=== PATIENT | female | born 1980 | race African-American/Black ===

== ENCOUNTER → 2021-09-09 04:05 | Outpatient (CLI) | payer OTHER, SELFPAY ==
[2021-09-09 16:54] LABS: SARS-CoV-2 RNA PCR Negative
== END ==
PROVIDERS: Visit Provider Obstetrics & Gynecology
DX: Z01.812 Encounter for preprocedural laboratory examination (principal); Z20.822 Contact with and (suspected) exposure to COVID-19
CPT/HCPCS: C9803; U0003; U0005

== ENCOUNTER 2021-09-10 03:11 | Day surgery (SDC) | payer OTHER, SELFPAY ==
[2021-09-08 10:42] VITALS: BMI 29.8
--- NOTE | 2021-09-08 10:51 | PC.NURSE ---
Report to the Outpatient Waiting Room, entrance under the green pavilion located off [facility], at time 1130 on date 09/10/21. OR Time: 1330. - You and your visitor will be asked a series of questions to screen for COVID 19 for your protection. - A mask is required within the hospital. - Only one visitor is allowed at this time. Patient visitors will be guided where to wait when not with patient. Preoperative COVID Testing Requirements: No COVID Test needed if: (proof is required; if not received patient will have Rapid Test prior to entry) - Patient has received COVID Vaccine at least 14 days prior to procedure date or - Patient has positive COVID test result within last 90 days of surgery date. COVID Test needed if above criteria is not met If not COVID vaccinated a COVID test must be conducted within 72 hours of surgery and patient is asked to isolate self from time of testing until procedure. You will go to the [facility] for your COVID testing. The [facility] is located at the corner of [address] [facility]. COVID TEST 09/09 AT 0830 You will only be called if COVID results are positive and your surgeon may reschedule your elective surgery date. Patients may have clear liquids (water, carbonated beverages, clear teas, apple juice) until 3 hours prior to surgery with a maximum of 20 ounces. - No food from midnight until time of surgery - Infants may have breast milk until 4 hours before surgery, infant formula 6 hours prior to surgery. - Children will be allowed to drink immediately following surgery. If applicable, please bring a bottle or sippy cup to assist with drinking. Juice, water, soda, and popsicles are readily available. For infants on formula, please bring formula the day of surgery. Pacifiers are allowed. Take the following medications with a SIP of water the morning of surgery: N/A Medications to discontinue per physician: VITAMINS/SUPPLEMENTS Date to take last dose: 3 DAYS PRE-OP Please no make-up, nail welsh, hairspray, perfume, deodorant, or body powder the day of surgery. No jewelry (including any body piercings) or valuables the day of surgery, leave them at home. Please take a shower or bath the night before, or the morning of, surgery with an antibacterial soap. Wear comfortable, loose fitting clothing. Children are encouraged to wear pajamas. - Jewelry must be removed prior to entering the operating room. Rings and piercings that are not removed may be cut off. - The hospital will not accept responsibility for valuables. - Please leave all valuables, including medications, at home the day of surgery. If you are going home after surgery, a licensed cab driver must drive you home. - NO public transportation without another adult. - We recommend that an adult stay with you for 24 hours following discharge. - We also recommend that you do not drive, make important decision, drink alcoholic beverages, or take any drugs that were not prescribed by your health care provider for at least 24 hours after your discharge time. For Pediatric surgeries, we recommend two adults accompany the child home (only one inside the building at this time). Follow any additional instructions given to you from your surgeon. Telephone instructions given to CLAYTON KINGSTON and asked if any additional questions and then verbalized understanding. Patient advised to call surgeon office or pre surgery nurse liaison [phone] if any additional questions.
--- NOTE | 2021-09-10 09:31 | WPDANESEPPF ---
Anes - Initial Pre Proc Eval Procedure: Operation Date: 09/10/21 13:30 Proposed Procedures p Suction Dilation and Curettage - Mauri Crow MD <Christophe Thomas MD - Last Filed: 09/11/21 14:54> Date/Time: 09/10/21 09:31 <Christophe Thomas MD - Last Filed: 09/11/21 14:54> Surgeon: Mauri Crow MD <Christophe Thomas MD - Last Filed: 09/11/21 14:54> Pre Op Diagnosis: missed Ab <Christophe Thomas MD - Last Filed: 09/11/21 14:54> Patient Data Age: 41 Gender: F Height: 1.63 m Weight: 78.93 kg <Christophe Thomas MD - Last Filed: 09/11/21 14:54> Allergies Allergy/AdvReac Type Severity Reaction Status Date / Time No Known Allergies Allergy Verified 09/10/21 11:42 <Christophe Thomas MD - Last Filed: 09/11/21 14:54> Home Medications Medication Instructions Recorded Confirmed Type multivitamin 1 tablet PO DAILY 09/08/21 09/10/21 History ibuprofen 800 mg PO TID #20 tablet 09/10/21 Rx <Christophe Thomas MD - Last Filed: 09/11/21 14:54> Patient hx anesthesia problems: none <Herbie Jeffrey MD - Last Filed: 09/10/21 12:17> Family hx anesthesia problems: none <Herbie Jeffrey MD - Last Filed: 09/10/21 12:17> Results Review: All pre-operative results and documents have been reviewed as part of the pre-operative evaluation. <Christophe Thomas MD - Last Filed: 09/11/21 14:54> PMFSH Past Medical History Medical History: Medical History Overweight (BMI 25.0-29.9) Smoker <Christophe Thomas MD - Last Filed: 09/11/21 14:54> Social History Social History: Social History Years smoked: 11 Smoking status: Current every day smoker Tobacco type: cigarettes and e-cigarettes/vaping Alcohol intake: never Substance use: never Substance use type: does not use Living arrangements: with family Additional living arrangements comments: CHILDREN Spiritual care concerns: No <Christophe Thomas MD - Last Filed: 09/11/21 14:54> Anes - Eval Final PreProcedure Day of Procedure 09/10/21 09:31 <Christophe Thomas MD - Last Filed: 09/11/21 14:54> Patient weight: overweight <Christophe Thomas MD - Last Filed: 09/11/21 14:54> overweight <Herbie Jeffrey MD - Last Filed: 09/10/21 12:17> Heart: regular rate and rhythm <Christophe Thomas MD - Last Filed: 09/11/21 14:54> regular rate and rhythm <Herbie Jeffrey MD - Last Filed: 09/10/21 12:17> Lungs: clear to auscultation and normal air movement <Christophe Thomas MD - Last Filed: 09/11/21 14:54> clear to auscultation <Herbie Jeffrey MD - Last Filed: 09/10/21 12:17> Airway: Mallampati scale class II <Christophe Thomas MD - Last Filed: 09/11/21 14:54> Mallampati scale class II <Herbie Jeffrey MD - Last Filed: 09/10/21 12:17> Neurological: alert and oriented <Christophe Thomas MD - Last Filed: 09/11/21 14:54> alert and oriented <Herbie Jeffrey MD - Last Filed: 09/10/21 12:17> Last oral intake: >/= 8 hours <Christophe Thomas MD - Last Filed: 09/11/21 14:54> >/= 8 hours <Herbie Jeffrey MD - Last Filed: 09/10/21 12:17> ASA classification: II <Christophe Thomas MD - Last Filed: 09/11/21 14:54> II <Herbie Jeffrey MD - Last Filed: 09/10/21 12:17> Emergent: no <Christophe Thomas MD - Last Filed: 09/11/21 14:54> no <Herbie Jeffrey MD - Last Filed: 09/10/21 12:17> Anesthetic plan: proceed <Christophe Thomas MD - Last Filed: 09/11/21 14:54> proceed <Herbie Jeffrey MD - Last Filed: 09/10/21 12:17> Anesthesia type and monitoring: general GIVS <Christophe Thomas MD - Last Filed: 09/11/21 14:54> general GIVS and standard monitoring <Herbie Jeffrey MD - Last Filed: 09/10/21 12:17> Results Review: All pre-operative results and documents have been reviewed as part of the pre-operative evaluat
[2021-09-10 11:44] VITALS: BMI 26.9
[2021-09-10] MEDS: ACETAMINOPHEN 500 MG TABLET 1000 MG PO (11:56)
[2021-09-10] MEDS: LACTATED RINGERS 1,000 ML 30 ML IV CONT (11:56)
[2021-09-10 12:12] VITALS: BP 106/71; PULSE 79; RESP 18; TEMP 36.3; O2SAT 100
--- NOTE | 2021-09-10 12:49 | P.HP_ITS ---
H&P: HPI History of Present Illness Date/Time: 09/10/21 12:49 41-year-old female presents with inappropriately rising hCG levels and vaginal bleeding. Ultrasound also reveals likely intrauterine with no abnormalities in the adnexal areas. She also denies any adnexal pain. We have discussed the small likelihood that still could be an ectopic but will start with procedure today which will confirm chorionic villi and also as she is having no other symptoms laparoscopic evaluation will not be performed today. Patient states good understanding questions have been answered and we will proceed. Chief Complaint: Abnormal Review of Systems Review of Systems: All systems reviewed & are unremarkable except as noted in HPI and below PMFSH Past Medical History Medical History Overweight (BMI 25.0-29.9) Smoker Social History Social History Years smoked: 11 Smoking status: Current every day smoker Tobacco type: cigarettes and e-cigarettes/vaping Alcohol intake: never Substance use: never Substance use type: does not use Living arrangements: with family Additional living arrangements comments: CHILDREN Spiritual care concerns: No Meds Home Medications and Allergies Home Medications Medication Instructions Recorded Confirmed Type multivitamin 1 tablet PO DAILY 09/08/21 09/10/21 History Allergies Allergy/AdvReac Type Severity Reaction Status Date / Time No Known Allergies Allergy Verified 09/10/21 11:42 Vital Signs Vital Signs - 24 hr 09/10/21 12:12 Temperature 36.3 C L Pulse Rate 79 Respiratory Rate 18 Blood Pressure 106/71 Pulse Oximetry 100 Exam Const: General: cooperative and healthy appearing Resp: Effort & Inspection: normal respiratory effort Auscultation: clear to auscultation bilaterally Cardio: Rate: regular rate Rhythm: regular rhythm GI: Inspection: normal to inspection Auscultation: normal bowel sounds : External Female Exam: normal external appearance Speculum Exam - Vagina: normal appearance of the vagina Speculum Exam - Cervix: normal appear ance of the cervix Bimanual exam- vagina & uterus: enlarged (6-8 week size) Bimanual Exam- Adnexa, other: normal adnexae Assessment and Plan Assessment and plan (1) Missed with demise before 20 completed weeks of gestation: Code(s): O02.1 - Missed Status: Acute Additional Plan Proceed with suction curettage
--- NOTE | 2021-09-10 12:53 | WPDHPUPDATE1 ---
History and Physical Update Update Date/Time: 09/10/21 12:53 History and Physical has been reviewed, including an updated exam of the patient. There are NO changes in the patient's condition. Risks, benefits, and alternatives have been discussed and questions answered. Patient agrees to proceed with procedure.
--- NOTE | 2021-09-10 13:30 | PM.OP ---
Procedure Note - Brief Procedure Note - Brief Date of procedure: 09/10/21 Pre-op diagnosis: missed Ab Post-op diagnosis: same Procedure performed: Suction curettage Description of procedure: Patient prepped and draped in usual manner for this procedure bimanual exam revealed retroverted uterus. Uterus was sounded to 9cm. 8mm curette was placed and a moderate amount of retained products of conception were removed. Sharp curette throughout with no remaining tissue. There is no significant bleeding at this point seizure was considered terminated. Anesthesia: GLMA Surgeon: Mauri Crow MD Estimated blood loss (mL): 50 Drains: No Packing: No Pathology: yes Complications: No immediate complications Condition: stable Disposition: PACU Findings: Moderate amount of retained products of conception
[2021-09-10 13:35] VITALS: BP 112/75; PULSE 72; RESP 14; O2SAT 99
[2021-09-10 14:00] VITALS: BP 117/75; PULSE 70; RESP 14
[2021-09-10 14:30] VITALS: BP 111/78; PULSE 65; RESP 14
== END 2021-09-10 14:40 | disposition home or self-care (01) ==
PROVIDERS: Visit Provider Obstetrics & Gynecology
PROC: (CPT 59820; principal; 2021-09-10 13:30)
DX: O02.1 Missed abortion (principal); F17.210 Nicotine dependence, cigarettes, uncomplicated; F17.290 Nicotine dependence, other tobacco product, uncomplicated
CPT/HCPCS: 59820; 36415; 85461; 88305; A9270; J2250; J2270; J2405; J2704; J7120

== ENCOUNTER 2022-03-18 11:57 | Outpatient (CLI) | payer OTHER, SELFPAY ==
--- NOTE | ~2022-03-18 | US_ITS ---
EXAMINATION: US OB <= 14 weeks fetus DATE: 03/18/2022 12:46 INDICATION: Vaginal bleeding TECHNIQUE: Real-time transabdominal obstetric ultrasound. FINDINGS: No prior studies for comparison. The uterus measures 14 x 9.7 x 11.2 cm. There is an intrauterine gestational sac, with pole jose juan ntified. The crown rump length measures 4.93 cm, which correlates with a estimated gestational age o f 11 weeks 5 days. heart tones are identified measuring 164 BPM. Right ovary is normal. Left ovary not visualized. IMPRESSION: 1. SL IUP with an EGA of 11 weeks, 5 days (EDC by current ultrasound of 10/02/2022). Reviewed, dictated and finalized at location A. IMPRESSION: 1. SL IUP with an EGA of 11 weeks, 5 days (EDC by current ultrasound of 022).
== END 2022-03-18 11:58 | disposition home or self-care (01) ==
PROVIDERS: PCP Obstetrics & Gynecology; Visit Provider Obstetrics & Gynecology
DX: O20.0 Threatened abortion (principal); Z3A.11 11 weeks gestation of pregnancy
CPT/HCPCS: 36415; 76801; 84702

== ENCOUNTER 2022-09-23 06:08 | Inpatient (IN) | payer OTHER, SELFPAY ==
[2022-09-23] VITALS (18 sets, daily range): BP systolic 96–130; BP diastolic 57–98; PULSE 76–96; RESP 17–18; TEMP 36.6–37.1; O2SAT 100; BMI 31.0
[2022-09-23] MEDS: AMPICILLIN 2 GM/NS 100 ML 2 GM/100 ML BAG IVPB (07:03)
[2022-09-23] MEDS: LACTATED RINGERS 1,000 ML 125 ML IV CONT (07:03)
[2022-09-23] MEDS: OXYTOCIN 30 UNITS/NS 500 ML 30 UNITS/500 ML BAG IV CONT (07:04)
[2022-09-23 07:13] LABS: Basophils Percent Auto 0.4 % (0.2-1.2); Eosinophils Percent Auto 0.4 % (0-4.4); Hematocrit 36.8 % (37.0-47.0); Hemoglobin 12.4 g/dL (12.0-15.0); Immature Granulocyte Absolute 0.03 K/mm3 (0.00-0.031); Immature Granulocyte Percent A 0.4 % (0-0.5); Lymphocytes Absolute Auto 1.49 K/mm3 (0.9-3.2); Lymphocytes Percent Auto 22.1 % (18.3-44.2); Mean Corpuscular HGB Conc 33.7 g/dl (32-36); Mean Corpuscular Hemoglobin 31.3 pg (26-34); Mean Corpuscular Volume 92.9 fl (80-100); Mean Platelet Volume 10.1 fl (7.4-10.4); Monocytes Absolute Auto 0.5 K/mm3 (0.1-0.6); Monocytes Percent Auto 6.7 % (2.6-8.5); Neutrophils Absolute Auto 4.7 K/mm3 (1.3-6.7); Platelet Count Result 211 k/mm3 (150-375); Red Blood Count 3.96 M/mm3 (4.2-5.4); Red Cell Distribution Width 13.9 % (11.5-14.5); White Blood Count 6.7 K/mm3 (4.5-10.0)
[2022-09-23 08:08] LABS: HIV 1/2 Ab P24 Ag Result Negative (Negative)
--- NOTE | 2022-09-23 10:51 | P.PCNOB_ITS ---
OB - Delivery Note Procedure Events: Intrauterine Growth Restriction (IUGR) Induction method: AROM and Per Pitocin Protocol Delivery monitor: External FHT and External Uterine Route of delivery: Episiotomy description: None Laceration Description: None Specimen: No Quantitative Blood Loss (ml): 300 Anesthesia type: None Disposition: Floor Complications: None Narrative: patient prepped in usual manner for this procedure. Maternal expulsive efforts readily delivered the baby without difficulty. Cord clamped and cut placenta delivered spontaneously as well. Uterus was well contracted. Cervix vagina v ulva were inspected with no lacerations or tears. No significant bleeding at this point the procedure was considered terminated. [place] Baby Weeks of gestation at delivery: 38 Infant gender: Female Weight (pounds): 5 Weight (ounces): 12 presentation: vertex Placenta delivery description: Spontaneous Cord Vessel Description: 3 Vessels score one minute: 8 score five minutes: 9 AMG Delivery Billing Delivery Delivery: Delivery Charge
--- NOTE | 2022-09-23 10:51 | WPDHPUPDATE1 ---
History and Physical Update Update Date/Time: 09/23/22 10:51 History and Physical has been reviewed, including an updated exam of the patient. There are NO changes in the patient's condition. Risks, benefits, and alternatives have been discussed and questions answered. Patient agrees to proceed with procedure.
--- NOTE | 2022-09-23 10:51 | WPDOBADMIT ---
Obstetrics - Admit Note Admission Note: record reviewed. No pertinent additions to the history and/or any subsequent changes in the physical findings that are not consistent with the expected course of the were found. Additions to the history and/or subsequent changes in the physical findings follow. None.
[2022-09-23] MEDS: HYDROcodone/acetaminophen (*CRX) 5-325 MG TABLET 1 TAB PO ×3 (10:56→21:07)
[2022-09-23] MEDS: OXYTOCIN 30 UNITS/NS 500 ML 30 UNITS/500 ML BAG 125 UNITS IV CONT (11:07)
[2022-09-23] MEDS: IBUPROFEN 600 MG TABLET PO ×2 (13:39→21:07)
--- NOTE | 2022-09-23 13:54 | OBPPTRN ---
Patient transferred to post room # 288 via wheelchair. Support person present. Oriented to unit, room, information board, rooming in, admission packet and security measures. PT introductions made and plan of care discussed per post , pain management, breast feeding, daily care activities. PT sole recipient of such instructions. PT received instructions this shift per one to one discussion ,mom baby care guide and demonstrations. No barriers to learning identified at this time. Patient verbalizes understanding.
[2022-09-23] MEDS: DOCUSATE SODIUM 100 MG CAPSULE PO (17:31)
[2022-09-24 03:54] VITALS: BP 109/70; PULSE 77; RESP 18; TEMP 36.4; O2SAT 100
[2022-09-24 04:32] LABS: Hematocrit 33.8 % (37.0-47.0); Hemoglobin 11.3 g/dL (12.0-15.0)
[2022-09-24] MEDS: IBUPROFEN 600 MG TABLET PO ×2 (05:52→17:46)
[2022-09-24 08:00] VITALS: BP 118/78; PULSE 87; RESP 18; TEMP 36.6; O2SAT 100
--- NOTE | 2022-09-24 08:00 | PC.NURSE ---
PT introductions made and plan of care discussed per post , pain management, breast bottle feeding, pumping, daily care activities. PT and spouse both recipients of such instructions and no barriers to learning identified at this time. PT received such instructions this shift per one to one discussion , mom baby care guide and demonstrations. PT verbalized understanding of such care.
[2022-09-24 10:00] VITALS: PULSE 87; RESP 18; O2SAT 100
[2022-09-24] MEDS: HYDROcodone/acetaminophen (*CRX) 5-325 MG TABLET 1 TAB PO ×2 (10:04→20:50)
[2022-09-24] MEDS: MULTIVIT/MIN/PREN/FOL AC/IRON TABLET 1 TAB PO (10:05)
[2022-09-24] MEDS: DOCUSATE SODIUM 100 MG CAPSULE PO ×2 (10:05→17:46)
--- NOTE | 2022-09-24 10:11 | PM.OBDSVD ---
DS: Admitting Diagnosis Discharge Date 09/24/2022 Admitting Diagnosis OB - DS: Summary OB Procedures : None OB Procedures Intrapartum: Spontaneous Vag Delivery OB Procedures: : None Time Spent with Patient Time attestation: Total time spent providing and/or coordinating discharge services: DS: Data Data Completed and Pending Labs on day of discharge: Labs from last 24 hours 09/24/22 04:25 Hgb 11.3 L Hct 33.8 L Discharge Plan Discharge Discharging Clinician: Mauri Crow Patient Disposition: Home, Self-Care Activity: as tolerated Diet: as tolerated Discharge Instructions: Education: Mom and Baby Guide Given to: Mother Follow-Up: Call your delivering provider's office for an appointment to be seen in: 4 Weeks Mom and baby should come to the [facility] for the follow-up appointment. Appointment Date/Time: September 25, 2022 at 9:00 am What to expect at your follow-up visit: Blood Pressure Check Call [phone] if you are unable to keep your appointment time. BREAST CARE: * Wear a snug supportive bra. * For engorgement discomfort: Breast Feeding: * Apply warm moist washcloths * Express milk as needed to relieve engorgement * Wear loose clothing Bottle Feeding: * May apply ice packs * For sore nipples: * Identify correct latch-on * Apply warm moist washcloths before and after nursing * Air dry nipples after nursing * May apply Lansinoh cream to nipples PERINEAL CARE: * Until bleeding stops, use your ammon bottle after urinating * Change your pad frequently throughout the day * You may take sitz baths several times a day (fill your bathtub with warm water and soak for 20 minutes.) Do NOT bathe in the water * No tub baths until seen by your physician - You may shower ACTIVITY: * Rest as much as possible. * Do not exercise or lift anything heavier than your baby (such as laundry or other children.) * Avoid stairs or driving as much as possible. * Do not put anything into the vagina. No douching, tampons, or sexual activity until seen by physician. NOTIFY PHYSICIAN IF YOU HAVE ANY QUESTIONS OR IF ANY OF THE FOLLOWING SYMPTOMS OCCUR: * If your episiotomy or incision becomes red, swollen, or more painful than what you have experienced in the hospital. * If your vaginal bleeding becomes foul smelling. * If your vaginal bleeding becomes more heavy than a period or if your bleeding changes from pink to bright red. However, you may pass an occasional walnut-sized clot once or twice for the first week . * If you experience a sharp, shooting pain in you calves. * If you discover a hard, reddened area on your breast or if you experience flu-like symptoms. * If you have a fever of 100.4 or greater DIET: * Eat regular, well-balanced meals. * Drink plenty of fluids daily. If , drink to thirst. Patient Instructions: Antibiotic Form Stand Alone Forms: General Discharge Information Follow-up/Referrals: Mauri Crow MD [Physician] - 3 Weeks Discharge Medications: New ibuprofen 600 mg tablet 600 mg PO TID Qty: 30 0RF Continued famotidine [Acid Area Field Manager (famotidine)] 20 mg tablet 20 mg PO BID docusate sodium 100 mg capsule 100 mg PO BID nystatin-triamcinolone 100,000-0.1 unit/g-% cream 1 applic topical BID Qty: 60 0RF vit-iron fum-folic ac 65 mg iron- 1 mg tablet 1 tablet PO DAILY Qty: 90 3RF Discontinued aspirin [Adult Low Dose Aspirin] 81 mg tablet,delayed release (DR/EC) 81 mg PO DAILY acyclovir 400 mg tablet 400 mg PO TID 14 Days Qty: 42 2RF Rx Instructions: after 2 weeks take daily b.i.d till delivery fluconazole [Diflucan] 150 mg tablet 150 mg PO ONCE Qty: 1 0RF Rx Instructions: as a single dose Date of admission: 09/02
[2022-09-24] MEDS: TETANUS,DIPHTHERIA,AC PERTUSSIS ADULT (0.5 ML) BOOSTRIX IM (17:45)
[2022-09-24 20:50] VITALS: BP 110/74; PULSE 82; RESP 18; TEMP 36.8
[2022-09-25] MEDS: IBUPROFEN 600 MG TABLET PO ×2 (00:30→08:22)
[2022-09-25] MEDS: HYDROcodone/acetaminophen (*CRX) 5-325 MG TABLET 1 TAB PO (05:24)
[2022-09-25 08:05] VITALS: BP 120/77; PULSE 77; RESP 18; TEMP 36.6; O2SAT 100
[2022-09-25] MEDS: MULTIVIT/MIN/PREN/FOL AC/IRON TABLET 1 TAB PO (08:22)
[2022-09-25] MEDS: DOCUSATE SODIUM 100 MG CAPSULE PO (08:22)
[2022-09-25 09:04] LABS: Rapid Plasma Reagin Non-Reactive (NonReactive)
--- NOTE | 2022-09-25 10:20 | PC.NURSE ---
Patient states she drove herself here and she will be driving herself home at discharge today. Per discharge instructions I told her to avoid driving as much as possible. Patient voiced understanding.
[2022-09-28 10:50] VITALS: BP 118/74; PULSE 89; RESP 20; TEMP 37.1; O2SAT 98
--- NOTE | 2022-09-28 14:02 | PM.OBDSVD ---
DS: Admitting Diagnosis Discharge Date 09/25/22 Admitting Diagnosis OB - DS: Summary OB Procedures : None OB Procedures Intrapartum: Spontaneous Vag Delivery OB Procedures: : None Time Spent with Patient Time attestation: Total time spent providing and/or coordinating discharge services: Discharge Plan Discharge Discharging Clinician: Mauri Crow Patient Disposition: Home, Self-Care Activity: as tolerated Diet: as tolerated Discharge Instructions: Education: Mom and Baby Guide Given to: Mother Follow-Up: Call your delivering provider's office for an appointment to be seen in: 3 Weeks Mom and baby should come to the [facility] for the follow-up appointment. Appointment Date/Time: September 28, 2022 at 11:00 am What to expect at your follow-up visit: Blood Pressure Check Physical Assessment Call [phone] if you are unable to keep your appointment time. BREAST CARE: * Wear a snug supportive bra. * For engorgement discomfort: Breast Feeding: * Apply warm moist washcloths * Express milk as needed to relieve engorgement * Wear loose clothing Bottle Feeding: * May apply ice packs * For sore nipples: * Identify correct latch-on * Apply warm moist washcloths before and after nursing * Air dry nipples after nursing * May apply Lansinoh cream to nipples PERINEAL CARE: * Until bleeding stops, use your ammon bottle after urinating * Change your pad frequently throughout the day * You may take sitz baths several times a day (fill your bathtub with warm water and soak for 20 minutes.) Do NOT bathe in the water * No tub baths until seen by your physician - You may shower ACTIVITY: * Rest as much as possible. * Do not exercise or lift anything heavier than your baby (such as laundry or other children.) * Avoid stairs or driving as much as possible. * Do not put anything into the vagina. No douching, tampons, or sexual activity until seen by physician. NOTIFY PHYSICIAN IF YOU HAVE ANY QUESTIONS OR IF ANY OF THE FOLLOWING SYMPTOMS OCCUR: * If your vaginal bleeding becomes foul smelling. * If your vaginal bleeding becomes more heavy than a period or if your bleeding changes from pink to bright red. However, you may pass an occasional walnut-sized clot once or twice for the first week . * If you experience a sharp, shooting pain in your calves. * If you discover a hard, reddened area on your breast or if you experience flu-like symptoms. DIET: * Eat regular, well-balanced meals. * Drink plenty of fluids daily. If , drink to thirst. Patient Instructions: Antibiotic Form Stand Alone Forms: General Discharge Information Follow-up/Referrals: Mauri Crow MD [Physician] - 3 Weeks Discharge Medications: New ibuprofen 600 mg tablet 600 mg PO TID Qty: 30 0RF Continued famotidine [Acid Perinatal Tech (famotidine)] 20 mg tablet 20 mg PO BID docusate sodium 100 mg capsule 100 mg PO BID nystatin-triamcinolone 100,000-0.1 unit/g-% cream 1 applic topical BID Qty: 60 0RF vit-iron fum-folic ac 65 mg iron- 1 mg tablet 1 tablet PO DAILY Qty: 90 3RF Discontinued aspirin [Adult Low Dose Aspirin] 81 mg tablet,delayed release (DR/EC) 81 mg PO DAILY acyclovir 400 mg tablet 400 mg PO TID 14 Days Qty: 42 2RF Rx Instructions: after 2 weeks take daily b.i.d till delivery fluconazole [Diflucan] 150 mg tablet 150 mg PO ONCE Qty: 1 0RF Rx Instructions: as a single dose Date of admission: 09/23/22 06:08 Primary Care Provider: PHYSICIAN,FORM LAYER Admitting Provider: Mauri Crow Attending physician on admission: Mauri Crow Condition: Stable
== END 2022-09-25 10:54 | disposition home or self-care (01) | DRG 560 ==
LOC: ANHLDR 06:12 → ANHOB2 14:01
PROVIDERS: Admitting Provider Obstetrics & Gynecology; Visit Provider Obstetrics & Gynecology
DX: O36.5930 Maternal care for other known or suspected poor fetal growth, third trimester, not applicable or unspecified (principal); O62.3 Precipitate labor; Z37.0 Single live birth; Z3A.38 38 weeks gestation of pregnancy; Z23 Encounter for immunization
CPT/HCPCS: 36415; 85014; 85018; 85025; 86592; 86703; 86850; 86900; 86901; 90471; 90686; 90715; A9270; G0008; G0432; J0290; J2590; J7120